=== PATIENT | female | born 1955 | race Caucasian/White ===

== ENCOUNTER 2019-06-17 20:12 | Emergency (ER) | payer OTHER ==
--- NOTE | 2019-06-17 20:20 | PDOC ---
History of Present Illness - History of Present Illness Initial Comments: HPI: 63yo F with PMH of DM, diabetic neuropathy, HTN, HLD, nephrolithiasis, herniated disc, ovarian CA s/p hysterectomy and oopherectomy brought in by EMS for back pain x 1 week. The pain is located over her right flank. No urinary symptoms. Patient does not recall an inciting event- no injury or fall. She describes the pain as "stabbing" and it is rated 20/10, worsening anytime she moves in a particular way. She has taken tylenol today with minimal relief of her symptoms. Denies saddle anesthesia, significant weight loss, history of cancer or IVDU, or urinary/fecal incontinence. Patient felt her pain severely worsen when she got home from work and felt like she could not even move to push the button in the elevator. Her neighbors called [employer]. No fever or chills. PCP: Dr. Teresa ROS: Constitutional: no fever, no chills HEENT: no throat pain, no dysphagia Cardiovascular: no chest pain, no palpitations Respiratory: no cough, no shortness of breath Gastrointestinal: no abdominal pain, no nausea Genitourinary: no dysuria, no hematuria Musculoskeletal: +R. flank pain, no L. flank pain Skin: no rash, no itching Neurologic: no headache, no weakness PE: General: Awake, alert, and fully oriented Head: No signs of trauma Eyes: EOMI, sclera anicteric ENT: Dry mucus membranes Neck: Normal ROM, supple Lungs: Lungs clear, Normal breath sounds Cardio: Regular rhythm, S1 and S2 present Abdomen: Soft, nontender. No guarding, no rebound, no masses Extremities: Normal range of motion, Distal pulses present SKIN: Warm, Dry, normal turgor Neurologic: Cranial nerves II through XII intact. Normal speech, strength, coordination. Deferred gait exam. Decreased sensation in BLE (which is at baseline due to neuropathy per patient) Rectal: The skin is without erythema or induration. No external hemorrhoids, fissures, skin tags, warts, or discharge. Sphincter tone normal. There are no masses palpated on digital exam. Intact sharp sensation in perianal area. Back: Tender to palpation in lumbar area, right of midline, no step-offs/ deformities/fluctuance; no overlying wound or lesion; negative straight leg test bilaterally; Cold glove test negative ED Course/MDM: DDX including but not limited to MSK, sciatica, nephrolithiasis, pyelonephritis , cauda equina, epidural abscess, retroperitoneal hematoma, herniated disc Robaxin Lidocaine patch Toradol 06/17/19 20:20 Patient states her pain is improved, now 10/10, down from 20/10 Appears more comfortable Pending UA collection 06/17/19 22:26 Updated patient's father over the phone per patient's request, 06/17/19 22:33 CBC WBC 11.7 K/mm3 (4.0-10.0) H 06/17/19 22:10 RBC 4.32 M/mm3 (3.60-5.2) 06/17/19 22:10 Hgb 13.5 GM/dL (10.7-15.3) 06/17/19 22:10 Hct 39.4 % (32.4-45.2) 06/17/19 22:10 MCV 91.2 fl (80-96) 06/17/19 22:10 MCH 31.3 pg (25.7-33.7) 06/17/19 22:10 MCHC 34.4 g/dl (32.0-36.0) 06/17/19 22:10 RDW 14.9 % (11.6-15.6) 06/17/19 22:10 Plt Count 231 K/MM3 (134-434) 06/17/19 22:10 MPV 9.1 fl (7.5-11.1) 06/17/19 22:10 Absolute Neuts (auto) 8.6 K/mm3 (1.5-8.0) H 06/17/19 22:10 Neutrophils % 73.1 % (42.8-82.8) 06/17/19 22:10 Lymphocytes % 19.1 % (8-40) 06/17/19 22:10 Monocytes % 6.2 % (3.8-10.2) 06/17/19 22:10 Eosinophils % 0.6 % (0-4.5) 06/17/19 22:10 Basophils % 1.0 % (0-2.0) 06/17/19 22:10 Nucleated RBC % 0 % (0-0) 06/17/19 22:10 Mild leukocytosis CMP Sodium 135 mmol/L (136-145) L 06/17/19 22:10 Potassium 4.5 mmol/L (3.5-5.1) 06/17/19 22:10 Chloride 103 mmol/L (98-107) 06/17/19 22:10 Carbon Dioxide 25 mmol/L (21-32) 06/17/19 22:10 Anion Gap 6 MMOL/L (8-16) L 06/17/19 22:10 BUN 15.1 mg/dL (7-18) 06/17/19 22:10 Creatinine 1.0 mg/dL (0.55-1.3) 06/17/19 22:10 Est GFR (CKD-EPI)AfAm 69.92 06/17/19 22:10 Est GFR (CKD-EPI)NonAf 60.33 06/17/19 22:10 Random Glucose 239 mg/dL (74-106) H 06/17/19 22:10 Calcium 8.5 mg/dL (8.5-10.1) 06/17/19 22:10 Total Bilirubin 0.3 mg/dL (0.2-1) 06/17/19 22:10 AST 20 U/L (15-37) 06/17/19 22:10 ALT 26 U/L (13-61) 06/17/19 22:10 Alkaline Phosphatase 115 U/L (45-117) 06/17/19 22:10 Total Protein 7.1 g/dl (6.4-8.2) 06/17/19 22:10 Albumin 3.4 g/dl (3.4-5.0) 06/17/19 22:10 Electrolytes unremarkable No transaminitis Normal Cr UA negative for infection or hematuria Pending Lumbar Spine Radiograph Will reassess 06/17/19 23:39 Patient able to ambulate with steady gait 06/17/19 23:43 <Alexa Whittaker - Last Filed: 06/17/19 23:54> <Faina Jaime - Last Filed: 06/17/19 23:55> - General Chief Complaint: Back Pain Stated Complaint: BACK PAIN Time Seen by Provider: 06/17/19 20:20 Past History <Alexa Whittaker - Last Filed: 06/17/19 23:54> <Faina Jaime - Last Filed: 06/17/19 23:55> - Past Medical History Allergies/Adverse Reactions: Allergies Allergy/AdvReac Type Severity Reaction Status Date / Time Penicillins Allergy Verified 06/17/19 20:26 Home Medications: Ambulatory Orders Ibuprofen [Motrin -] 400 mg PO QID PRN #30 tablet 06/17/19 Lidocaine 5% Patch [Lidoderm -] 1 patch TP DAILY #7 patch 06/17/19 Methocarbamol [Robaxin -] 1,500 mg PO QID #24 tablet 06/17/19 *Physical Exam - Vital Signs Last Vital Signs Temp Pulse Resp BP Pulse Ox 97.9 F 79 20 140/81 100 06/17/19 20:28 06/17/19 20:28 06/17/19 20:28 06/17/19 20:28 06/17/19 20:28 <Faina Jaime - Last Filed: 06/17/19 23:55> ED Treatment Course - LABORATORY CBC & Chemistry Diagram: 06/17/19 22:10 06/17/19 22:10 <Alexa Whittaker - Last Filed: 06/17/19 23:54> - LABORATORY CBC & Chemistry Diagram: 06/17/19 22:10 06/17/19 22:10 - ADDITIONAL ORDERS Additional order review: Laboratory Results 06/17/19 06/17/19 22:39 22:10 Sodium 135 L Potassium 4.5 Chloride 103 Carbon Dioxide 25 Anion Gap 6 L BUN 15.1 Creatinine 1.0 Est GFR (CKD-EPI)AfAm 69.92 Est GFR (CKD-EPI)NonAf 60.33 Random Glucose 239 H Calcium 8.5 Total Bilirubin 0.3 AST 20 ALT 26 Alkaline Phosphatase 115 Total Protein 7.1 Albumin 3.4 Urine Color Yellow Urine Appearance Clear Urine pH 5.0 Ur Specific [place] 1.026 Urine Protein Negative Urine Glucose (UA) Negative Urine Ketones Negative Urine Blood Negative Urine Nitrite Negative Urine Bilirubin Negative Urine Urobilinogen 0.2 Ur Leukocyte Esterase Negative 06/17/19 22:10 RBC 4.32 MCV 91.2 MCHC 34.4 RDW 14.9 MPV 9.1 Neutrophils % 73.1 Lymphocytes % 19.1 Monocytes % 6.2 Eosinophils % 0.6 Basophils % 1.0 - RADIOLOGY Radiology Studies Ordered: Category Date Time Status SPINE-LUMBAR ONLY [RAD] Stat Radiology 06/17/19 22:49 Taken - Medications Given in the ED: ED Medications Discontinued Medications Generic Name Dose Route Start Last Admin Trade Name Freq PRN Reason Stop Dose Admin Ketorolac Tromethamine 30 mg 06/17/19 21:28 06/17/19 22:13 Toradol Injection - IM 06/17/19 21:29 30 mg ONCE ONE Administration Lidocaine 1 patch 06/17/19 21:28 06/17/19 22:13 Lidoderm Patch - TP 06/17/19 21:29 1 patch ONCE ONE Administration Methocarbamol 1,000 mg 06/17/19 21:28 06/17/19 22:13 Robaxin - PO 06/17/19 21:29 1,000 mg ONCE ONE Administration <Faina Jaime - Last Filed: 06/17/19 23:55> Discharge - Discharge Information Problems reviewed: Yes <Alexa Whittaker - Last Filed: 06/17/19 23:54> <Faina Jaime - Last Filed: 06/17/19 23:55> - Discharge Information Clinical Impression/Diagnosis: Back spasm Back pain Qualifiers: Back pain location: low back pain Chronicity: acute Back pain laterality: right Sciatica presence: without sciatica Qualified Code(s): M54.5 - Low back pain Condition: Improved Disposition: HOME - Additional Discharge Information Prescriptions: Ibuprofen [Motrin -] 400 mg PO QID PRN #30 tablet PRN Reason: Back Pain Lidocaine 5% Patch [Lidoderm -] 1 patch TP DAILY #7 patch Methocarbamol [Robaxin -] 1,500 mg PO QID #24 tablet - Patient Discharge Instructions Patient Printed Discharge Instructions: DI for Low Back Pain, DI for Muscle Spasm Additional Instructions: You came to the emergency department for back pain. Your pain improved with medication. Labs were within normal limits. Prescription sent to your pharmacy. Take as instructed. You can also take [id number] tylenol or motrin for pain. Follow the instructions on the medication bottle. Follow-up with you primary care physician this week to discuss this ED visit and to further evaluate your back pain. Your care is not complete until you do so. Call and make an appointment. Immediate medical attention is required if you have back pain and : numbness in the genital or rectal area, loss of bowel or bladder control, difficulty with urination; fever, unexplained weight loss, or other signs of illness or infection. If you think you are having an emergency, call for emergency medical - Post Discharge Activity Work/Back to School Note: Back to Work
--- NOTE | 2019-06-17 20:22 | PDOC ---
Attending Attestation - Resident Resident Name: Alexa Whittaker - ED Attending Attestation I have performed the following: I have examined & evaluated the patient, The case was reviewed & discussed with the resident, I agree w/resident's findings & plan
[2019-06-17 20:32] VITALS: BP 140/81; PULSE 79; TEMP 97.9; BMI 30.2
[2019-06-17] MEDS ORDERED: LIDOCAINE 5% TOPICAL PATCH TP ONE (21:28)
[2019-06-17] MEDS ORDERED: METHOCARBAMOL 500 MG TABLET PO ONE (21:28)
[2019-06-17] MEDS ORDERED: KETOROLAC TROMETHAMINE 30 MG/1 ML VIAL IM ONE (21:28)
[2019-06-17] MEDS ORDERED: METHOCARBAMOL 500 MG TABLET ONE (21:58)
[2019-06-17] MEDS ORDERED: KETOROLAC TROMETHAMINE 30 MG/1 ML VIAL ONE (21:59)
[2019-06-17] MEDS ORDERED: LIDOCAINE 5% TOPICAL PATCH ONE (21:59)
[2019-06-17] MEDS ORDERED: LIDOCAINE PATCH REMOVAL MC SCH (22:00)
[2019-06-17 22:19] LABS: EOS % 0.6 % (0-4.5); HEMATOCRIT 39.4 % (32.4-45.2); HEMOGLOBIN 13.5 GM/dL (10.7-15.3); LYMPH % 19.1 % (8-40); MCH 31.3 pg (25.7-33.7); MCHC 34.4 g/dl (32.0-36.0); MEAN CELL VOLUME 91.2 fl (80-96); MEAN PLT VOLUME 9.1 fl (7.5-11.1); MONO % 6.2 % (3.8-10.2); NEUT % 73.1 % (42.8-82.8); PLATELET COUNT 231 K/MM3 (134-434); RBC 4.32 M/mm3 (3.60-5.2); RDW 14.9 % (11.6-15.6); WHITE BLOOD COUNT 11.7 K/mm3 (4.0-10.0)
[2019-06-17 22:42] LABS: ALBUMIN 3.4 g/dl (3.4-5.0); BILIRUBIN,TOTAL 0.3 mg/dL (0.2-1); BLOOD UREA NITROGEN 15.1 mg/dL (7-18); CALCIUM 8.5 mg/dL (8.5-10.1); POTASSIUM 4.5 mmol/L (3.5-5.1); TOT PROT 7.1 g/dl (6.4-8.2)
[2019-06-17 22:45] LABS: URINE APPEARANCE CLEAR; URINE BILIRUBIN NEGATIVE (NEGATIVE); URINE COLOR YELLOW; URINE GLUCOSE (UA) NEGATIVE (NEGATIVE); URINE KETONE NEGATIVE (NEGATIVE); URINE LEUK ESTERASE NEGATIVE (NEGATIVE); URINE NITRITE NEGATIVE (NEGATIVE); URINE PROTEIN NEGATIVE (NEGATIVE); URINE UROBILINOGEN 0.2 mg/dL (0.2-1.0)
--- NOTE | 2019-06-17 23:33 | PDOC ---
Documentation entered by Marquise Huerta SCRIBE, acting as scribe for Faina Jaime MD. Faina Jaime MD: This documentation has been prepared by the Bradley tate Daniel, SCRIBE, under my direction and personally reviewed by me in its entirety. I confirm that the documentation accurately reflects all work, treatment, procedures, and medical decision making performed by me. Attending Attestation - Resident Resident Name: Alexa Whittaker - ED Attending Attestation I have performed the following: I have examined & evaluated the patient, The case was reviewed & discussed with the resident, I agree w/resident's findings & plan, Exceptions are as noted - HPI HPI: 06/17/19 21:30 The patient is a 63 year old female with a past medical history of herniated disc, kidney stones, diabetes, diabetic neuropathy, HTN, HLD, and ovarian cancer s/p hysterectomy here today for evaluation of right sided back pain. The patient reports that she has had 1 week of stabbing right sided lumbar back pain that was a 7/10 but became a 20/10 today while she was coming home. She states that the pain became so severe today that she was unable to walk and states that she took tylenol which provided no relief. Patient denies headache, lightheadedness. Denies fever, chills. Denies chest pain, shortness of breath. Denies nausea, vomiting, diarrhea, abdominal pain. Denies urinary symptoms. Allergies: penicillins Surgical history: cholecystectomy - Physicial Exam PE: 06/17/19 21:30 GENERAL: Awake, alert, and fully oriented, in no acute distress HEAD: No signs of trauma EYES: PERRLA, EOMI, sclera anicteric, conjunctiva clear ENT: Auricles normal inspection, hearing grossly normal, nares patent, oropharynx clear without exudates. Moist mucosa NECK: Normal ROM, supple, no lymphadenopathy, JVD, or masses LUNGS: Breath sounds equal, clear to auscultation bilaterally. No wheezes, and no crackles HEART: Regular rate and rhythm, normal S1 and S2, no murmurs, rubs or gallops ABDOMEN: Soft, nontender, normoactive bowel sounds. No guarding, no rebound. No masses BACK: +right paraspinal tenderness. EXTREMITIES: Normal range of motion, no edema. No clubbing or cyanosis. No cords, erythema, or tenderness NEUROLOGICAL: Cranial nerves II through XII grossly intact. Normal speech, normal gait SKIN: Warm, Dry, normal turgor, no rashes or lesions noted. - Medical Decision Making 06/17/19 21:34 Pt has equal reflexes in lower knees and ankles bilat; cold sensation equal throughout levels of spine (ice in glove test) Pt has down going [place] bilaterally Pt is able to lift legs bilat off the bed; no radiation of pain down posterior legs Pt has right low back paraspinal pain with movement; likely spasm of back muscles. 06/17/19 23:32 UA normal 06/17/19 23:52 XR L spine shows loss of lordosis; likely to be due to muscle spasm. 06/17/19 23:53 Pt is feeling better and she is ready to go home with analgesics and muscle relaxants. Pt has normal labs; blood sugar slightly high; known DM.
== END 2019-06-18 00:40 | disposition home or self-care (01) ==
LOC: JER 20:12
PROC: 3E0233Z Introduction of Anti-inflammatory into Muscle, Percutaneous Approach (ICD-10-PCS; principal; 2019-06-17)
DX: M54.5 Low back pain (principal); D72.829 Elevated white blood cell count, unspecified; I10 Essential (primary) hypertension; E11.42 Type 2 diabetes mellitus with diabetic polyneuropathy; E78.5 Hyperlipidemia, unspecified; Z85.43 Personal history of malignant neoplasm of ovary; Z90.710 Acquired absence of both cervix and uterus; Z90.721 Acquired absence of ovaries, unilateral; Z88.0 Allergy status to penicillin; Z87.442 Personal history of urinary calculi
CPT/HCPCS: 36415; 72100-TC-FY; 80053; 81003; 85025; 99283-25